=== PATIENT | female | born 1995 | race Caucasian/White ===

== ENCOUNTER 2021-02-23 16:30 | Emergency (ER) | payer OTHER ==
[2021-02-23 19:46] VITALS: TEMP 98.3
[2021-02-23] MEDS ORDERED: diphenhydrAMINE 50 MG/ML 1 ML VIAL IVP STA (22:51)
[2021-02-23] MEDS ORDERED: CLINDAMYCIN 600 MG in DEXTROSE 5% IN WATER 50 ML IVPB STA ×2 (22:51)
[2021-02-23] MEDS ORDERED: SODIUM CHLORIDE 0.9% 500 ML 1,000 ML IV STA (22:52)
--- NOTE | 2021-02-23 22:56 | ED ---
Skin/Abscess/FB HPI - General Chief complaint: Skin/Abscess/Foreign Body Stated complaint: MRSA Right Leg Time Seen by Provider: 02/23/21 22:45 Source: patient, RN notes reviewed Mode of arrival: ambulatory Limitations: no limitations - History of Present Illness Initial comments: This is a pleasant 25-year-old female who presents to emergency complaining of MRSA infection to the skin of her anterior right knee. Patient states she was on Bactrim DS from the hospital on [facility]. Patient subsequently was admitted to [facility] for opiate addiction. Has been switched over to clindamycin which she's been on for 2 days. Patient states that the wound culture from [facility] came back today and showed MRSA. Patient has some sensitivity to the area. Patient states she popped this area herself with a sterilized. 2 nights ago. Patient denies any fever or chills. No nausea or vomiting. No chance of . Patient has a history of opiate addiction. Patient also has a history of endocarditis and IV drug abuse. No headache, no fever or chills, no changes in vision or hearing, no sore throat or difficulty with speech, no neck pain, no chest pain or shortness of breath, no abdominal pain, no nausea or vomiting, no changes in urination or bowel movements, no numbness or tingling, no extremity pain, no skin rashes or lesions. - Related Data Home Medications Medication Instructions Recorded Confirmed Acetaminophen Tab [Tylenol] 650 mg PO TID PRN 02/23/21 02/23/21 Calcium/Magnesium/Zinc/Pushpa D 1 tab PO TID 02/23/21 02/23/21 Chlorpheniramine Maleate 4 mg PO Q4H PRN 02/23/21 02/23/21 [Chlor-Trimeton] Hyoscyamine Sulfate [Levsin] 0.125 mg PO QID PRN 02/23/21 02/23/21 Ibuprofen [Motrin Ib] 600 mg PO Q6H PRN 02/23/21 02/23/21 Loperamide HCl [Imodium A-D] 4 mg PO TID PRN 02/23/21 02/23/21 Mirtazapine [Remeron] 15 mg PO HS 02/23/21 02/23/21 Multivitamins, Thera [Multivitamin 1 tab PO DAILY 02/23/21 02/23/21 (formulary)] Thiamine HCl [Vitamin B-1] 100 mg PO DAILY 02/23/21 02/23/21 cloNIDine HCL [Catapres] 0.1 mg PO DAILY PRN 02/23/21 02/23/21 ondansetron HCL [Zofran] 8 mg PO Q6H PRN 02/23/21 02/23/21 Previous Rx's Medication Instructions Recorded Clindamycin [Cleocin] 300 mg PO Q6H 10 Days #40 cap 02/23/21 clindamycin HCL [Cleocin] 300 mg PO Q6H #40 cap 02/23/21 Allergies Allergy/AdvReac Type Severity Reaction Status Date / Time No Known Allergies Allergy Verified 02/23/21 23:19 Review of Systems ROS Statement: Those systems with pertinent positive or pertinent negative responses have been documented in the HPI. ROS Other: All systems not noted in ROS Statement are negative. Past Medical History Additional Past Medical History / Comment(s): endocarditits History of Any Multi-Drug Resistant Organisms: MRSA Date of last positivie culture/infection: 03/06 MDRO Source:: right knee Past Surgical History: Section, Tonsillectomy Past Psychological History: ADD/ADHD, Anxiety, Bipolar, Depression Smoking Status: Current every day smoker Past Alcohol Use History: None Reported Past Drug Use History: Heroin General Exam - General Exam Comments Initial Comments: Patient does not appear to be ill or toxic. Vital signs stable, patient afebrile. Limitations: no limitations General appearance: alert, in no apparent distress Head exam: Present: atraumatic, normocephalic, normal inspection Eye exam: Present: normal appearance, PERRL, EOMI. Absent: scleral icterus, conjunctival injection, periorbital swelling ENT exam: Present: normal exam, mucous membranes moist Neck exam: Present: normal inspection. Absent: tenderness, meningismus, lymphadenopathy Respiratory exam: Present: normal lung sounds bilaterally. Absent: respiratory distress, wheezes, rales, rhonchi, stridor Cardiovascular Exam: Present: regular rate, normal rhythm, normal heart sounds. Absent: systolic murmur, diastolic murmur, rubs, gallop, clicks GI/Abdominal exam: Present: soft, normal bowel sounds. Absent: distended, tenderness, guarding, rebound, rigid Extremities exam: Present: normal inspection, full ROM, tenderness, normal capillary refill, other (Patient has mild tenderness to abrasion on the anterior aspect of her right knee which appears to be minimally infected with minimal erythema surrounding. No purulent drainage. There is eschar formation. Does not appear to involve the joint.). Absent: pedal edema, joint swelling, calf tenderness Back exam: Present: normal inspection Neurological exam: Present: alert, oriented X3, CN II-XII intact Psychiatric exam: Present: normal affect, normal mood Skin exam: Present: warm, dry, intact, normal color, abrasion (Patient has multiple abrasions noted to the lateral aspect of her left ankle which does not appear to be infected. Infected abrasions anterior aspect of the right knee with no joint space involvement. No lymphangitis. Minimal erythema suggesting minimal cellulitis. No drainage). Absent: rash Course Vital Signs 02/23/21 19:43 Temperature 98.3 F Pulse Rate 83 Respiratory 18 Rate Blood Pressure 138/93 O2 Sat by Pulse 99 Oximetry Medical Decision Making - Medical Decision Making Patient no distress. Vital signs stable, patient afebrile. The patient's been on clindamycin 2 days for community acquired MRSA. I'm going to leave the patient on Cleocin. I will give her 1 dose of IV clindamycin here. Patient can be discharged back to [facility]. No evidence of systemic infection. Full range of motion in all major joints. Full strength in all major muscle groups. No evidence of joint space infection. Follow-up with your regular physician as directed. Return to the ER immediately if any symptoms worsen, new symptoms arise, or any other problems develop. Increase the patient to clindamycin 300 mg 4 times a day if she is not on this already. - Lab Data Result diagrams: 02/23/21 23:23 02/23/21 23:23 Lab Results 02/23/21 02/23/21 Range/Units 23:23 23:23 WBC 9.3 (3.8-10.6) k/uL RBC 5.14 (3.80-5.40) m/uL Hgb 14.3 (11.4-16.0) gm/dL Hct 44.6 (34.0-46.0) % MCV 86.8 (80.0-100.0) fL MCH 27.8 (25.0-35.0) pg MCHC 32.1 (31.0-37.0) g/dL RDW 13.3 (11.5-15.5) % Plt Count 413 (150-450) k/uL MPV 6.7 Neutrophils % 60 % Lymphocytes % 32 % Monocytes % 4 % Eosinophils % 1 % Basophils % 1 % Neutrophils # 5.6 (1.3-7.7) k/uL Lymphocytes # 3.0 (1.0-4.8) k/uL Monocytes # 0.4 (0-1.0) k/uL Eosinophils # 0.1 (0-0.7) k/uL Basophils # 0.0 (0-0.2) k/uL Sodium 140 (137-145) mmol/L Potassium 4.1 (3.5-5.1) mmol/L Chloride 103 (98-107) mmol/L Carbon Dioxide 27 (22-30) mmol/L Anion Gap 10 mmol/L BUN 21 H (7-17) mg/dL Creatinine 0.69 (0.52-1.04) mg/dL Est GFR (CKD-EPI)AfAm >90 (>60 ml/min/1.73 sqM) Est GFR (CKD-EPI)NonAf >90 (>60 ml/min/1.73 sqM) Glucose 123 H (74-99) mg/dL Calcium 10.0 (8.4-10.2) mg/dL Disposition Clinical Impression: Cellulitis of right leg without foot Narrative: Minimal cellulitis to the anterior aspect of the right knee secondary to an abrasion. Disposition: HOME SELF-CARE Condition: Good Instructions (If sedation given, give patient instructions): Cellulitis (ED) Additional Instructions: Follow-up with your regular physician as directed. Return to the ER immediately if any symptoms worsen, new symptoms arise, or any other problems develop. If he don't have her regular doctor you can follow up with the provided physician in 48 hours for wound recheck. Continue the clindamycin as directed. Apply warm compresses for 10-15 minutes at a time 4 times daily. Do not pick at the area or attempt to drain the area. Prescriptions: clindamycin HCL [Cleocin] 300 mg PO Q6H #40 cap Is patient prescribed a controlled substance at d/c from ED?: No Referrals: Tadeo Metz MD [STAFF PHYSICIAN] - 02/26/21 Time of Disposition: 22:59
[2021-02-23 23:40] LABS: Basophils % (A) 1 %; Eosinophils # (A) 0.1 k/uL (0-0.7); Eosinophils % (A) 1 %; HCT 44.6 % (34.0-46.0); HGB 14.3 gm/dL (11.4-16.0); Lymphocytes % (A) 32 %; MCH 27.8 pg (25.0-35.0); MCHC 32.1 g/dL (31.0-37.0); MCV 86.8 fL (80.0-100.0); Mean Platelet Volume 6.7; Monocytes # (A) 0.4 k/uL (0-1.0); Monocytes % (A) 4 %; Neutrophils # (A) 5.6 k/uL (1.3-7.7); Neutrophils % (A) 60 %; Platelet Count 413 k/uL (150-450); RBC 5.14 m/uL (3.80-5.40); RDW 13.3 % (11.5-15.5); WBC 9.3 k/uL (3.8-10.6)
[2021-02-23 23:55] LABS: African American GFR (CKD) >90 (>60 ml/min/1.73 sqM); Anion Gap 10 mmol/L; Blood Urea Nitrogen 21 mg/dL (7-17); Carbon Dioxide 27 mmol/L (22-30); Chloride 103 mmol/L (98-107); Glucose 123 mg/dL (74-99); Non-African American GFR(CKD) >90 (>60 ml/min/1.73 sqM); Potassium 4.1 mmol/L (3.5-5.1); Sodium 140 mmol/L (137-145)
[2021-02-24 00:34] VITALS: BP 124/78; PULSE 78; RESP 17
== END 2021-02-24 00:25 | disposition home or self-care (01) ==
LOC: EC 16:30
DX: L03.115 Cellulitis of right lower limb (principal); F17.200 Nicotine dependence, unspecified, uncomplicated
CPT/HCPCS: 36415; 80048; 85025; 99283; 96365; 96375; J1200

== ENCOUNTER 2023-07-08 18:14 | Inpatient (IN) | payer MEDICAID, OTHER ==
[2023-07-08] MEDS ORDERED: ACETAMINOPHEN TAB 325 MG TAB PO PRN (18:54)
[2023-07-08] MEDS ORDERED: MAGNESIUM HYDROXIDE 2,400 MG/30 ML CUP PO PRN (18:54)
[2023-07-08] MEDS: APIXABAN 5 MG TAB PO SCH (22:05)
[2023-07-08] MEDS: QUEtiapine 200 MG TAB PO SCH (22:25)
[2023-07-08] MEDS: SERTRALINE 50 MG TAB PO SCH (22:25)
[2023-07-08] MEDS: HALOPERIDOL LACTATE 5 MG/ML 1 ML VIAL IM PRN (22:28)
[2023-07-08] MEDS: LORazepam 2 MG/ML INJ IM PRN (22:28)
[2023-07-09] MEDS: METHADONE 10 MG TAB PO SCH (09:42)
[2023-07-09] MEDS: METHADONE 5 MG TAB PO SCH (09:43)
[2023-07-09 15:12] LABS: Chol/HDL Ratio 3.76 Ratio; LDL Cholesterol,Calculated 132.3 mg/dL (0.0-131.0)
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
[2023-07-09] MEDS: lamoTRIgine 25 MG TAB PO SCH (20:27)
--- NOTE | 2023-07-10 10:07 | P.PN ---
Progress Note - Text Progress Note Date: 07/10/23 (Interval History:Patient was seen [wandering the hallways] and was directable and agreeable to speak with typewriters functional tester in the office. []. At this time patient denies any suicidal or homical ideations, intent or plan. Patient denies any auditory, visual hallucinations and denies any paranoia or delusions. Patient denies any side effects from the medications and has been compliant with meds. Mental Status Exam:General Appearance: [Patient appears to be stated age is alert, directable, and cooperative.] Behavior: [Patient is calmly seated without any agitated behavior.]Speech: Patient's speech is fluent and nonpressured. Mood/Affect: Mood is improving mildly, affect is congruent and constricted. Suicidality/Homicidality: Patient denies having any suicidal or homicidal ideation intent or plan. Perceptions: Patient denies any visual hallucinations [and denies any auditory hallucinations] Though content/process: [There is no evidence of any delusional thought content and thought process is linear and goal-directed.] Memory and concentration: AOX3, grossly intact for the purposes of this sessionJudgment and insight: Improving mildlyAssessment[]Plan:-Patient continues to meet criteria for inpatient psychiatric admission for symptom stabilization and safety. Patient has [not] signed [adult voluntary form and] [medication consent] and was placed in patient's chart.-Medications: []-When necessary Ativan and Haldol for agitation/aggression.-NRT - [nicotine patch]-SW on board for discharge planning. Encouraged the patient to participate in milieu. [Currently awaiting deferral with employee benefits attorney and court date.] []) Interval History: Patient was seen [wandering the hallways] and was directable and agreeable to speak with typewriters functional tester in the office. Patient is quite fidgety today. Patient states her mood is good today, and that she is going to be going back to [place] upon discharge. At this time patient denies any suicidal or homicidal ideations, intent or plan. Patient denies any auditory, visual hallucinations and denies any paranoia or delusions. Patient denies any side effects from the medications and has been compliant with meds. MENTAL STATUS EXAM: General Appearance: Patient appears to be stated age, has tattoos. Fair hygiene and grooming, wearing her own clothing with fair eye contact. Behavior: Patient is sitting on the chair,, repeatedly moving her arms and legs (voluntary movements, reports this is from her ADHD), otherwise more calm today Speech: Patient's speech is fluent and non-pressured. Mood/Affect: Patient reports their mood improving but also depressed and anxious, affect is congruent Suicidality/Homicidality: Patient denies having any suicidal or homicidal ideation intent or plan. Perceptions: Patient denies any visual hallucinations and denies any auditory hallucinations. Though content/process: There is no evidence of any delusional thought content, and thought process can be evasive, but otherwise organized and generally linear Memory and concentration: AOX3, grossly intact for the purposes of this session. Judgment and insight: poor IMPRESSIONS: major depressive disorder Unspecified anxiety disorder PTSD by history ADHD by history Opioid use disorder, severe Methamphetamine use disorder Tobacco use disorder PLAN: -Patient is admitted under pet/cert status to MHU for stabilization of psychiatric symptoms and safety. Patient has signed adult voluntary form and medication consent and is placed in patient's chart. -Medications: Zoloft 50 mg daily this morning for depression/anxiety, Seroquel 200 mg QHS for mood/sleep and Methadone (prescribed by outpatient provider) for opioid addiction. Lamictal 25 mg QHS for mood stabilization. Discussed risk of rash with Lamictal and she should stop Lamictal and notify her doctor if a rash develops. -Ativan and Haldol PRN for agitation/aggression -NRT - nicotine patch -SW on board for discharge planning. Encourage patient to participate in groups to work on coping skills D/C to rehab as patient continues to improve..
[2023-07-10] MEDS: NICOTINE GUM (POLACRILEX) 2 MG GUM BUCCAL PRN (12:13)
[2023-07-10] MEDS: LORazepam 0.5 MG TAB PO PRN (20:07)
[2023-07-11 06:56] VITALS: PULSE 50; RESP 17; TEMP 98.8
--- NOTE | 2023-07-11 10:29 | P.PN ---
Progress Note - Text Progress Note Date: 07/11/23 Interval History: Patient was seen in group and was directable and agreeable to speak with tag writer in the office. Patient continues to be quite fidgety, and contributes this to ADHD. Patient states her mood is a little sad today, because she found out her mom has to have surgery, and sad that she is not being discharged today, because she wants to get this recovery process started. She is not endorsing any anxiety today. Patient stated she is not noticing any rash from the Lamictal. She claims to be sleeping well at night, and her appetite is good. At this time patient denies any suicidal or homicidal ideations, intent or plan. Patient denies any auditory, visual hallucinations and denies any paranoia or delusions. Patient denies any side effects from the medications and has been compliant with meds. MENTAL STATUS EXAM: General Appearance: Patient appears to be stated age, has tattoos. Fair hygiene and grooming, wearing her own clothing with fair eye contact. Behavior: Patient is sitting on the chair, repeatedly moving her arms and legs (voluntary movements, reports this is from her ADHD), otherwise more calm today Speech: Patient's speech is fluent and non-pressured. Mood/Affect: Patient reports their mood improving , affect is congruent Suicidality/Homicidality: Patient denies having any suicidal or homicidal ideation intent or plan. Perceptions: Patient denies any visual hallucinations and denies any auditory hallucinations. Though content/process: There is no evidence of any delusional thought content, and thought process can be evasive, but otherwise organized and generally linear Memory and concentration: AOX3, grossly intact for the purposes of this session. Judgment and insight: poor, improving mildly IMPRESSIONS: major depressive disorder Unspecified anxiety disorder PTSD by history ADHD by history Opioid use disorder, severe Methamphetamine use disorder Tobacco use disorder PLAN: -Patient is admitted under pet/cert status to MHU for stabilization of psychiatric symptoms and safety. Patient has signed adult voluntary form and medication consent and is placed in patient's chart. -Medications: Zoloft 50 mg daily this morning for depression/anxiety, Seroquel 200 mg QHS for mood/sleep and Methadone (prescribed by outpatient provider) for opioid addiction. increase Lamictal 50 mg QHS for mood stabilization. Discussed risk of rash with Lamictal and she should stop Lamictal and notify her doctor if a rash develops. -Ativan and Haldol PRN for agitation/aggression -NRT - nicotine patch -SW on board for discharge planning. Encourage patient to participate in groups to work on coping skills D/C to rehab as patient continues to improve and has [facility].
[2023-07-11] MEDS: haloperidoL 5 MG TAB PO PRN (14:13)
[2023-07-11] MEDS ORDERED: hydrOXYzine HCL 25 MG TAB PO PRN (15:29)
--- NOTE | 2023-07-11 18:50 | P.HPMEDMHU ---
History of Present Illness H&P Date: 07/11/23 Patient is a 27-year-old female with a past medical history of pulmonary embolism, endocarditis, IV drug abuse who is admitted to the psychiatry unit and being treated for depression. Patient states that the last time she injected herself was about 3 weeks ago. Patient is denying any fever chills nausea vomiting. She wants to be discharged from the psych unit as soon as possible. ROS: 10 ROS reviewed and are negative except as noted in HPI Physical exam General: [Alert and oriented, well nourished, no acute distress]. Eye: [PERRL, EOMI, normal conjunctiva]. HENT: [Normocephalic, clear tympanic membranes, normal hearing, moist oral mucosa, no scleral icterus, no sinus tenderness]. Neck: [Supple, non-tender, no carotid bruits, no JVD, no lymphadenopathy]. Lungs: [Clear to auscultation and percussion, non-labored respiration]. Heart: [Normal rate, regular rhythm, no murmur, gallop or edema]. Abdomen: [Soft, non-tender, non-distended, normal bowel sounds, no masses]. Musculoskeletal: [Normal range of motion and strength, no tenderness or swelling]. Skin: [Skin is warm, dry and pink, no rashes or lesions]. Neurologic: [Awake, alert, and oriented X3, CN II-XII intact]. Psychiatric: [Cooperative, appropriate mood and affect]. Assessment and plan Drug abuse Continue with methadone therapy History of pulm embolism Continue with Eliquis History of endocarditis Patient told to notify us if she has any fevers Depression As per your psychiatry management Reviewed patient's labs that are unremarkable Patient hemodynamically stable Please do not hesitate to contact sound physicians with any questions Past Medical History Past Medical History: Pulmonary Embolus (PE) Additional Past Medical History / Comment(s): endocarditits History of Any Multi-Drug Resistant Organisms: MRSA Date of last positivie culture/infection: 03/06 MDRO Source:: right knee Past Surgical History: Section, Tonsillectomy Additional Past Surgical History / Comment(s): Rhinoplasty Past Anesthesia/Blood Transfusion Reactions: No Reported Reaction Smoking Status: Current every day smoker, Vaper - Past Family History Mother History Unknown: Yes Medications and Allergies Home Medications Medication Instructions Recorded Confirmed Type Apixaban [Eliquis] 5 mg PO BID 07/06/23 07/09/23 History Methadone HCl [Methadone Intensol] 185 mg PO DAILY 07/06/23 07/09/23 History QUEtiapine [SEROquel] 200 mg PO HS 07/06/23 07/09/23 History Allergies Allergy/AdvReac Type Severity Reaction Status Date / Time No Known Allergies Allergy Verified 07/06/23 18:38 Physical Exam Osteopathic Statement: *. No significant issues noted on an osteopathic structural exam other than those noted in the History and Physical/Consult. Vitals: Vital Signs Temp Pulse Resp BP Pulse Ox 07/11/23 06:55 98.8 F 50 L 17 110/69 95 Cranial Nerve Examination - Cranial Nerves Cranial Nerve I- Olfactory: Intact Cranial Nerve II- Optic: Intact Cranial Nerve III- Oculomotor: Intact Cranial Nerve IV- Trochlear: Intact Cranial Nerve V- Trigeminal: Intact Cranial Nerve - Abducens: Intact Cranial Nerve VII- Facial: Intact Cranial Nerve VIII- Auditory: Intact Cranial Nerve IX- Glossopharyngeal: Intact Cranial Nerve X- Vagus: Intact Cranial Nerve XI- Accessory: Intact Cranial Nerve XII- Hypoglossal: Intact Thrombosis Risk Factor Assmnt - Choose All That Apply Any of the Below Risk Factors Present?: Yes Each Factor Represents 1 point: Obesity (BMI >25) Other Risk Factors: Yes Each Risk Factor Represents 3 Points: History of DVT/PE Other congenital or acquired thrombophilia - If yes, enter type in comment: No Thrombosis Risk Factor Assessment Total Risk Factor Score: 4 Thrombosis Risk Factor Assessment Level: Moderate Risk
[2023-07-11] MEDS: lamoTRIgine 25 MG TAB PO SCH (19:58)
[2023-07-12 08:57] VITALS: BP 98/68
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
== END 2023-07-12 12:55 | disposition home or self-care (01) | DRG 754 ==
LOC: UNDOADMIN 21:22 → 3MHU 21:22 → UNDODISIN 07-12 12:55
PROVIDERS: ADMIT Psychiatry & Neurology Psychiatry; ATTEND Psychiatry & Neurology Psychiatry
DX: F32.9 Major depressive disorder, single episode, unspecified (principal); F43.10 Post-traumatic stress disorder, unspecified; F41.0 Panic disorder [episodic paroxysmal anxiety]; F90.9 Attention-deficit hyperactivity disorder, unspecified type; F11.20 Opioid dependence, uncomplicated; F15.20 Other stimulant dependence, uncomplicated; E87.8 Other disorders of electrolyte and fluid balance, not elsewhere classified; F17.290 Nicotine dependence, other tobacco product, uncomplicated; Z91.51 Personal history of suicidal behavior; I07.1 Rheumatic tricuspid insufficiency; T45.5 Poisoning by, adverse effect of and underdosing of anticoagulants and antithrombotic drugs; E66.9 Obesity, unspecified; Z68.30 Body mass index [BMI] 30.0-30.9, adult; Z91.128 Patient's intentional underdosing of medication regimen for other reason; T40.1X Poisoning by and adverse effect of heroin; T42.4X2D Poisoning by benzodiazepines, intentional self-harm, subsequent encounter; Z79.01 Long term (current) use of anticoagulants; Z79.899 Other long term (current) drug therapy; Z86.711 Personal history of pulmonary embolism; Z86.14 Personal history of Methicillin resistant Staphylococcus aureus infection; Z63.4 Disappearance and death of family member; Z62.810 Personal history of physical and sexual abuse in childhood; Z62.811 Personal history of psychological abuse in childhood; Z91.410 Personal history of adult physical and sexual abuse; Z56.0 Unemployment, unspecified; Z28.310 Unvaccinated for COVID-19; Z86.19 Personal history of other infectious and parasitic diseases; Z71.41 Alcohol abuse counseling and surveillance of alcoholic; Z71.51 Drug abuse counseling and surveillance of drug abuser
CPT/HCPCS: 80061; 83036; 84443

== ENCOUNTER 2024-05-30 17:43 | Inpatient (IN) | payer OTHER ==
--- NOTE | 2024-05-30 18:03 | ED ---
General Adult HPI - General Chief complaint: Chest Pain Stated complaint: Chest pain Time Seen by Provider: 05/30/24 17:52 Source: patient, EMS, RN notes reviewed, old records reviewed Mode of arrival: EMS Limitations: no limitations - History of Present Illness Initial comments: 28-year-old female presenting with left-sided chest pain, worse with deep inspiration. Patient does report productive cough. No fever. She last used heroin 2 days prior she is currently at [place]. She has history of IVDA, remote history of PE and endocarditis. She denies dyspnea. Denies unilateral calf pain. - Related Data Home Medications Medication Instructions Recorded Confirmed Apixaban [Eliquis] 5 mg PO BID 07/06/23 07/09/23 Methadone HCl [Methadone Intensol] 185 mg PO DAILY 07/06/23 07/09/23 Previous Rx's Medication Instructions Recorded Nicotine Gum (Polacrilex) 2 mg BUCCAL Q4HR PRN 30 Days #180 07/12/23 [Nicorette] pieceofgum QUEtiapine [SEROquel] 200 mg PO HS 30 Days #30 tab 07/12/23 Sertraline [Zoloft] 50 mg PO DAILY 30 Days #30 tab 07/12/23 hydrOXYzine HCL [Atarax] 50 mg PO BID PRN 30 Days #120 tab 07/12/23 lamoTRIgine [LaMICtal] 50 mg PO HS 30 Days #60 tab 07/12/23 Allergies Allergy/AdvReac Type Severity Reaction Status Date / Time No Known Allergies Allergy Verified 05/30/24 17:52 Review of Systems ROS Statement: Those systems with pertinent positive or pertinent negative responses have been documented in the HPI. ROS Other: All systems not noted in ROS Statement are negative. Past Medical History Past Medical History: Pulmonary Embolus (PE) Additional Past Medical History / Comment(s): endocarditits History of Any Multi-Drug Resistant Organisms: MRSA Date of last positivie culture/infection: 03/06 MDRO Source:: right knee Past Surgical History: Section, Tonsillectomy Additional Past Surgical History / Comment(s): Rhinoplasty, Past Anesthesia/Blood Transfusion Reactions: No Reported Reaction Past Psychological History: ADD/ADHD, Anxiety, Bipolar, Depression Smoking Status: Current every day smoker, Vaper Past Alcohol Use History: None Reported Past Drug Use History: Heroin General Exam Limitations: no limitations General appearance: alert, in no apparent distress Head exam: Present: atraumatic Eye exam: Present: normal appearance, PERRL Neck exam: Present: normal inspection. Absent: tenderness Respiratory exam: Present: normal lung sounds bilaterally. Absent: respiratory distress, wheezes Cardiovascular Exam: Present: regular rate, normal rhythm GI/Abdominal exam: Present: soft. Absent: distended Extremities exam: Present: normal inspection Neurological exam: Present: alert, oriented X3, CN II-XII intact. Absent: motor sensory deficit Psychiatric exam: Present: normal affect, normal mood Skin exam: Present: warm, dry, intact Course Vital Signs 05/30/24 05/30/24 17:48 20:32 Temperature 99.0 F 98.7 F Pulse Rate 71 74 Respiratory 18 18 Rate Blood Pressure 110/66 115/74 O2 Sat by Pulse 100 99 Oximetry Medical Decision Making - Medical Decision Making Was pt. sent in by a medical professional or institution (, PA, GAMING MANAGER, urgent care, hospital, or half-way...) When possible be specific @ -No Did you speak to anyone other than the patient for history (EMS, parent, family, police, friend...)? What history was obtained from this source @ -No Did you review nursing and triage notes (agree or disagree)? Why? @ -I reviewed and agree with nursing and triage notes Were old charts reviewed (outside hosp., previous admission, EMS record, old EKG, old radiological studies, urgent care reports/EKG's, half-way records)? Report findings @ -No old charts were reviewed Differential Chest Pain: Stable Angina, Unstable Angina, STEMI, NSTEMI Aortic Dissection, Pneumothorax, Musculoskeletal, Esophageal Spasm GERD, Cholecystitis, Pancreatitis, Zoster, this is not meant to be an all-inclusive list. EKG interpreted by me (3pts min.). @Sinus rhythm rate of 68, DE interval 168, QRS duration 95, QTc [address] segment elevation. X-rays interpreted by me (1pt min.). @Negative for acute cardiopulmonary findings. CT interpreted by me (1pt min.). @ -[CT angiography negative for pulmonary embolism, concerning for infectious process U/S interpreted by me (1pt. min.). @ -None done What testing was considered but not performed or refused? (CT, X-rays, U/S, labs)? Why? @ -None What meds were considered but not given or refused? Why? @ -None Did you discuss the management of the patient with other professionals (professionals i.e. , PA, GAMING MANAGER, lab, RT, psych nurse, social media assistant, petrography teacher, teacher, correction officer, case operator)? Give summary @[facility] Was smoking cessation discussed for >3mins.? @ -No Was critical care preformed (if so, how long)? @ -No Were there social determinants of health that impacted care today? How? (Homelessness, low income, unemployed, alcoholism, drug addiction, transportation, low edu. Level, literacy, decrease access to med. care, senior living, rehab)? @ -No Was there de-escalation of care discussed even if they declined (Discuss DNR or withdrawal of care, Hospice)? DNR status @ -No What co-morbidities impacted this encounter? (DM, HTN, Smoking, COPD, CAD, Cancer, CVA, ARF, Chemo, Hep., AIDS, mental health diagnosis, sleep apnea, morbid obesity)? @ -[IV drug use, endocarditis, PE Was patient admitted / discharged? Hospital course, mention meds given and route, prescriptions, significant lab abnormalities, going to OR and other pertinent info. @ -28-year-old female with significant past medical history presenting for evaluation of left-sided chest pain, generalized discomfort. History of IV drug abuse, history of endocarditis, history of pulmonary embolism. Patient has stable vitals. She is in sinus rhythm without ST segment elevation. She has a leukopenia and anemia. She had a positive D-dimer and in the setting of pleuritic chest pain this was evaluated with CT angiography that was negative for pulmonary embolism. Patient is generally ill-appearing. I did obtain a blood culture which is pending. I do feel this patient would benefit from IV antibiotics and a period of observation. Case discussed with [facility] will admit. I will order echo. Undiagnosed new problem with uncertain prognosis? @ -[No Drug Therapy requiring intensive monitoring for toxicity (Heparin, Nitro, Insulin, Cardizem)? @ -No Were any procedures done? @ -No Diagnosis/symptom? @Chest pain, pneumonia Acute, or Chronic, or Acute on Chronic? @ -Acute Uncomplicated (without systemic symptoms) or Complicated (systemic symptoms)? @Complicated Side effects of treatment? @ -No Exacerbation, Progression, or Severe Exacerbation? @ -No Poses a threat to life or bodily function? How? (Chest pain, [place], NH, pneumonia, PE, COPD, DKA, ARF, appy, cholecystitis, CVA, Diverticulitis, Homicidal, Suicidal, threat to staff... and all critical care pts) @Yes, sepsis - Lab Data Result diagrams: 05/30/24 18:17 05/30/24 18:17 Lab Results 05/30/24 05/30/24 05/30/24 Range/Units 18:05 18:17 18:17 WBC 2.34 L (4.50-10.00) 10*3/uL RBC 4.34 (4.10-5.20) 10*6/uL Hgb 10.5 L (12.0-15.0) g/dL Hct 34.1 L (37.2-46.3) % MCV 78.6 L (80.0-97.0) fL MCH 24.2 L (27.0-32.0) pg MCHC 30.8 L (32.0-37.0) g/dL Plt Count 300 (140-440) 10*3/uL MPV 8.9 L (9.5-12.2) fL Immature Gran % (Auto) 0.4 % Neutrophils % 62.1 % Lymphocytes % 17.9 % Monocytes % 19.2 % Eosinophils % 0.0 % Basophils % 0.4 % Immature Gran # 0.01 (0.00-0.04) 10*3/uL Neutrophils # 1.45 L (1.80-7.70) 10*3/uL Lymphocytes # 0.42 L (0.90-5.00) 10*3/uL Monocytes # 0.45 (0.20-1.00) 10*3/uL Eosinophils # 0.00 L (0.04-0.35) 10*3/uL Basophils # 0.01 (0.00-0.10) 10*3/uL PT 11.9 (10.0-12.5) sec INR 1.1 (<1.2) APTT 24.7 (22.0-30.0) sec D-Dimer 0.93 H (<0.60) mg/L FEU Sodium (137-145) mmol/L Potassium (3.5-5.1) mmol/L Chloride (98-107) mmol/L Carbon Dioxide (22-30) mmol/L Anion Gap mmol/L BUN (7-17) mg/dL Creatinine (0.52-1.04) mg/dL Est GFR (CKD-EPI)AfAm (>60 ml/min/1.73 sqM) Est GFR (CKD-EPI)NonAf (>60 ml/min/1.73 sqM) Glucose (74-99) mg/dL Calcium (8.4-10.2) mg/dL Magnesium (1.6-2.3) mg/dL Total Bilirubin (0.2-1.3) mg/dL AST (14-36) U/L ALT (4-34) U/L Alkaline Phosphatase (38-126) U/L Troponin I (0.000-0.034) ng/mL NT-Pro-B Natriuret Pep pg/mL Total Protein (6.3-8.2) g/dL Albumin (3.5-5.0) g/dL Influenza Type A (PCR) Not Detected (Not Detectd) Influenza Type B (PCR) Not Detected (Not Detectd) RSV (PCR) Not Detected (Not Detectd) SARS-CoV-2 (PCR) Not Detected (Not Detectd) 05/30/24 05/30/24 Range/Units 18:17 18:17 WBC (4.50-10.00) 10*3/uL RBC (4.10-5.20) 10*6/uL Hgb (12.0-15.0) g/dL Hct (37.2-46.3) % MCV (80.0-97.0) fL MCH (27.0-32.0) pg MCHC (32.0-37.0) g/dL Plt Count (140-440) 10*3/uL MPV (9.5-12.2) fL Immature Gran % (Auto) % Neutrophils % % Lymphocytes % % Monocytes % % Eosinophils % % Basophils % % Immature Gran # (0.00-0.04) 10*3/uL Neutrophils # (1.80-7.70) 10*3/uL Lymphocytes # (0.90-5.00) 10*3/uL Monocytes # (0.20-1.00) 10*3/uL Eosinophils # (0.04-0.35) 10*3/uL Basophils # (0.00-0.10) 10*3/uL PT (10.0-12.5) sec INR (<1.2) APTT (22.0-30.0) sec D-Dimer (<0.60) mg/L FEU Sodium 136 L (137-145) mmol/L Potassium 4.2 (3.5-5.1) mmol/L Chloride 102 (98-107) mmol/L Carbon Dioxide 25 (22-30) mmol/L Anion Gap 9 mmol/L BUN 17 (7-17) mg/dL Creatinine 0.59 (0.52-1.04) mg/dL Est GFR (CKD-EPI)AfAm >90 (>60 ml/min/1.73 sqM) Est GFR (CKD-EPI)NonAf >90 (>60 ml/min/1.73 sqM) Glucose 89 (74-99) mg/dL Calcium 9.8 (8.4-10.2) mg/dL Magnesium 2.3 (1.6-2.3) mg/dL Total Bilirubin 0.5 (0.2-1.3) mg/dL AST 54 H (14-36) U/L ALT 16 (4-34) U/L Alkaline Phosphatase 91 (38-126) U/L Troponin I <0.012 (0.000-0.034) ng/mL NT-Pro-B Natriuret Pep 441 pg/mL Total Protein 7.6 (6.3-8.2) g/dL Albumin 4.4 (3.5-5.0) g/dL Influenza Type A (PCR) (Not Detectd) Influenza Type B (PCR) (Not Detectd) RSV (PCR) (Not Detectd) SARS-CoV-2 (PCR) (Not Detectd) Disposition Clinical Impression: Chest pain, Pneumonia Disposition: ADMITTED IP TO THIS HOSP Condition: Stable Is patient prescribed a controlled substance at d/c from ED?: No Referrals: Nonstaff,Physician [Primary Care Provider] - 1-2 days Time of Disposition: 20:51
[2024-05-30 18:24] LABS: Basophils # (A) 0.01 10*3/uL (0.00-0.10); Basophils % (A) 0.4 %; HCT 34.1 % (37.2-46.3); HGB 10.5 g/dL (12.0-15.0); Lymphocytes # (A) 0.42 10*3/uL (0.90-5.00); Lymphocytes % (A) 17.9 %; MCH 24.2 pg (27.0-32.0); MCHC 30.8 g/dL (32.0-37.0); MCV 78.6 fL (80.0-97.0); Mean Platelet Volume 8.9 fL (9.5-12.2); Monocytes # (A) 0.45 10*3/uL (0.20-1.00); Monocytes % (A) 19.2 %; Neutrophils # (A) 1.45 10*3/uL (1.80-7.70); Neutrophils % (A) 62.1 %; Platelet Count 300 10*3/uL (140-440); RBC 4.34 10*6/uL (4.10-5.20); RDW 14.1 % (11.5-14.5); WBC 2.34 10*3/uL (4.50-10.00)
--- NOTE | 2024-05-30 18:35 | XR ---
EXAMINATION TYPE: XR chest 2V DATE OF EXAM: 05/30/2024 6:25 PM COMPARISON: Prior chest radiograph 07/06/2023. CLINICAL INDICATION: Female, 28 years old with history of Chest Pain; [facility] TECHNIQUE: XR chest 2V Frontal and lateral views of the chest. FINDINGS: Lungs/Pleura: There is no evidence of pleural effusion, focal consolidation, or pneumothorax. Pulmonary vascularity: Unremarkable. Heart/mediastinum: Cardiomediastinal silhouette is unremarkable. Musculoskeletal: No acute osseous pathology. Other findings: None IMPRESSION: No acute cardiopulmonary disease/process. [facility], , 05/30/2024 6:33 PM
[2024-05-30 18:36] LABS: ALT 16 U/L (4-34); AST 54 U/L (14-36); African American GFR (CKD) >90 (>60 ml/min/1.73 sqM); Albumin 4.4 g/dL (3.5-5.0); Alkaline Phosphatase 91 U/L (38-126); Anion Gap 9 mmol/L; Blood Urea Nitrogen 17 mg/dL (7-17); Calcium 9.8 mg/dL (8.4-10.2); Carbon Dioxide 25 mmol/L (22-30); Chloride 102 mmol/L (98-107); Glucose 89 mg/dL (74-99); Magnesium 2.3 mg/dL (1.6-2.3); Non-African American GFR(CKD) >90 (>60 ml/min/1.73 sqM); Potassium 4.2 mmol/L (3.5-5.1); Sodium 136 mmol/L (137-145); Total Bilirubin 0.5 mg/dL (0.2-1.3); Total Protein 7.6 g/dL (6.3-8.2)
[2024-05-30 18:39] LABS: INR 1.1 (<1.2); Partial Thromboplastin Time 24.7 sec (22.0-30.0); Prothrombin Time 11.9 sec (10.0-12.5)
[2024-05-30 18:44] LABS: NT-Pro-B-Type Natriuretic Pept 441 pg/mL
[2024-05-30 18:47] LABS: Influenza A Not Detected (Not Detectd); Influenza B Not Detected (Not Detectd); RSV Not Detected (Not Detectd)
--- NOTE | 2024-05-30 19:21 | CT ---
EXAMINATION TYPE: CT angio chest DATE OF EXAM: 05/30/2024 7:13 PM COMPARISON: None. CLINICAL INDICATION: Female, 28 years old with history of cp hx of PE, pos dimer; Cp hx of PE, pos di marley. TECHNIQUE/CONTRAST: CTA scan of the thorax is performed with IV Contrast, patient injected with 100 ml mL of Isovue 370, MIP images are created and reviewed these are created on a separate workstation.. CT DLP: 257.3 mGycm, Automated exposure control for dose reduction was used. FINDINGS: Pulmonary Artery: There is no evidence for a filling defect within the pulmonary vasculature to sugge st acute pulmonary embolism. The pulmonary artery is of normal size. Lungs/Pleura: No evidence of focal consolidation, pleural effusion or pneumothorax. Mild bronchial wa ll thickening and mucous plugging and lower lobes. Questionable groundglass attenuation opacities in the lingula and left lower lobe. Airway: Large airways are patent. Heart: Heart is within normal limits for size. Vasculature: No evidence of aortic aneurysm. Mediastinum: No gross evidence of adenopathy. Musculoskeletal: No acute osseous abnormalities Soft Tissues/lymph nodes: Unremarkable. Lower neck: No significant findings. Upper Abdomen: No significant acute findings. Splenomegaly partially visualized. IMPRESSION: 1. No evidence of acute pulmonary embolism. 2. Mild bronchial wall thickening and mucous plugging in the lower lobes with few scattered groundgl ass opacities which could reflect infectious or inflammatory bronchitis. [facility], , 05/30/2024 7:18 PM
[2024-05-30] MEDS ORDERED: NALOXONE 0.4 MG/ML 1 ML VIAL IV PRN (20:47)
[2024-05-30] MEDS ORDERED: ACETAMINOPHEN TAB 325 MG TAB PO PRN (20:47)
[2024-05-30] MEDS ORDERED: IBUPROFEN 400 MG TAB PO PRN (20:47)
[2024-05-30] MEDS: SODIUM CHLORIDE 0.9% 1,000 ML IV SCH (21:14)
[2024-05-30] MEDS: AZITHROMYCIN 500 MG in SODIUM CHLORIDE 0.9% 250 ML IVPB STA (21:41)
[2024-05-31] MEDS: ALPRAZolam 0.25 MG TAB PO PRN (01:34)
[2024-05-31] MEDS ORDERED: HYOSCYAMINE SULFATE 0.125 MG TAB PO PRN (11:08)
--- NOTE | 2024-05-31 11:11 | P.HPIM ---
History of Present Illness H&P Date: 05/31/24 History of present illness; Patient is a 28-year-old female with history of heroin use, history of pulmonary embolism and endocarditis who presents with left-sided chest pain. Patient states pain began a few days ago and is worsened with deep inspiration. She does states she has productive greenish sputum with cough and some shortness of breath. She is currently staying at [place] and is in IV drug user with last use of heroin 3 days ago. Currently she is denying calf pain or immobilization. She states she is feeling uncomfortable with the effects of withdrawal. Spoke with the ER physician, patient admission was accepted by internal medicine service for treatment. REVIEW OF SYSTEMS: Pertinent positives and negatives noted in HPI. PHYSICAL EXAMINATION: Vitals reviewed GENERAL: Moderate distress. EYES: PERRL, no scleral injection or icterus. No vision loss HENT: Normocephalic, atraumatic, hearing grossly intact, moist mucous membranes NECK: No tracheal deviation, full range of motion. CARDIOVASCULAR: S1 and S2 present. No murmurs, rubs, or gallops. PULMONARY: Chest is clear to auscultation, no wheezing, rhonchi, or crackles. ABDOMEN: Soft, nontender, nondistended. No palpable organomegaly. MUSCULOSKELETAL: No apparent joint swelling and deformities. EXTREMITIES: No splinter hemorrhaging, Janeway lesions or Osler nodes. No apparent cyanosis, clubbing. No pedal edema. NEUROLOGICAL: Alert and oriented. Gross neurological examination with no apparent focal deficits. SKIN: No apparent rashes. ER FINDINGS: Labs significant for WBC 2.3, hemoglobin 10.5, MCV 78, D-dimer 0.93, sodium 136, AST 54, troponin negative, proBNP 441, viral respiratory panel negative EKG independently interpreted showed sinus rhythm heart rate of 68, QTc 425, no ST segment elevation or depression seen, no T-wave inversions seen. Chest x-ray done independently interpreted showed no acute cardiopulmonary process. CTA chest independently interpreted as no evidence of pulmonary lesion, mild bronchial wall thickening and mucous plugging in lower lobes with few scattered groundglass opacities Assessment and Plan: In summary, patient is a 28-year-old female with history of heroin use, history of pulmonary embolism and endocarditis who presents with left-sided chest pain. # Atypical chest pain #History of endocarditis #Microcytic anemia #Opioid withdrawal #History of IV drug use #History of pulmonary embolism Afebrile CTAP with no pulmonary embolism visualized Continue Ativan and Xanax for agitation Resume home Suboxone Echocardiogram ordered Blood cultures pending Cardiac monitoring Monitor CBC and BMP Chronic Medical Conditions #Anxiety, bipolar, depression Resume home medications DVT ppx: Subq Lovenox 40 meq daily Code status: Full code F: P.o. E: Replete as needed N: Regular diet A: Ambulatory Anticipated discharge place: [place] Anticipated discharge time: Today or tomorrow Dictation was produced using [employer] dictation software. Please excuse any grammatical, word or spelling errors. Past Medical History Past Medical History: Pulmonary Embolus (PE) Additional Past Medical History / Comment(s): endocarditits History of Any Multi-Drug Resistant Organisms: MRSA Date of last positivie culture/infection: 03/06 MDRO Source:: right knee Past Surgical History: Section, Tonsillectomy Additional Past Surgical History / Comment(s): Rhinoplasty, head injury Past Anesthesia/Blood Transfusion Reactions: No Reported Reaction Past Psychological History: ADD/ADHD, Anxiety, Bipolar, Depression Smoking Status: Current every day smoker, Vaper Past Alcohol Use History: None Reported Past Drug Use History: Heroin Medications and Allergies Home Medications Medication Instructions Recorded Confirmed Type Acetaminophen Tab [Tylenol] 650 mg PO Q4H PRN MDD 4 doses 05/31/24 05/31/24 History Calcium Phos/D3/Magnesium/Zinc 1 tab PO TID PRN 05/31/24 05/31/24 History [Qfhdudw-Mrm-Gjyx-Vitamin D3] Chlorpheniramine Maleate 4 mg PO Q4H PRN 05/31/24 05/31/24 History [Chlor-Trimeton] Hyoscyamine Sulfate [Levsin] 0.125 mg PO QID PRN 05/31/24 05/31/24 History Ibuprofen [Motrin Ib] 600 mg PO Q6H PRN 05/31/24 05/31/24 History Loperamide HCl [Imodium A-D] 4 mg PO QID PRN MDD 8 tablets 05/31/24 05/31/24 History Multivitamins, Thera [Multivitamin 1 tab PO DAILY 05/31/24 05/31/24 History (formulary)] Mylanta 30 ml PO Q4H PRN 05/31/24 05/31/24 History RX: guaiFENesin SYRUP 100MG/5ML 200 mg PO Q4H PRN 05/31/24 05/31/24 History [Robitussin] Thiamine [Vitamin B-1] 100 mg PO DAILY 05/31/24 05/31/24 History buprenorphine HCL [Subutex] 2 - 4 mg SUBLINGUAL DIRECTED 05/31/24 05/31/24 History cloNIDine HCL [Catapres] 0.1 mg PO Q4H PRN 05/31/24 05/31/24 History Allergies Allergy/AdvReac Type Severity Reaction Status Date / Time No Known Allergies Allergy Verified 05/31/24 08:50 Physical Exam Vitals: Vital Signs Temp Pulse Pulse Resp BP BP Pulse Ox 05/31/24 07:00 98.3 F 68 19 114/70 98 05/31/24 03:00 98.3 F 62 16 110/68 100 05/30/24 22:27 98.9 F 88 18 123/80 97 05/30/24 20:32 98.7 F 74 18 115/74 99 05/30/24 17:48 99.0 F 71 18 110/66 100 Intake and Output 05/30/24 05/31/24 05/31/24 22:59 06:59 14:59 Other: Voiding Method Toilet # Voids 1 Weight 70.307 kg Results CBC & Chem 7: 05/30/24 18:17 05/30/24 18:17 Labs: Abnormal Lab Results - Last 24 Hours (Table) 05/30/24 05/30/24 05/30/24 Range/Units 18:17 18:17 18:17 WBC 2.34 L (4.50-10.00) 10*3/uL Hgb 10.5 L (12.0-15.0) g/dL Hct 34.1 L (37.2-46.3) % MCV 78.6 L (80.0-97.0) fL MCH 24.2 L (27.0-32.0) pg MCHC 30.8 L (32.0-37.0) g/dL MPV 8.9 L (9.5-12.2) fL Neutrophils # 1.45 L (1.80-7.70) 10*3/uL Lymphocytes # 0.42 L (0.90-5.00) 10*3/uL Eosinophils # 0.00 L (0.04-0.35) 10*3/uL D-Dimer 0.93 H (<0.60) mg/L FEU Sodium 136 L (137-145) mmol/L AST 54 H (14-36) U/L Thrombosis Risk Factor Assmnt - Choose All That Apply Any of the Below Risk Factors Present?: Yes Each Factor Represents 1 point: Obesity (BMI >25) Other Risk Factors: No Other congenital or acquired thrombophilia - If yes, enter type in comment: No Thrombosis Risk Factor Assessment Total Risk Factor Score: 1 Thrombosis Risk Factor Assessment Level: Low Risk
[2024-05-31] MEDS: ALPRAZolam 0.5 MG TAB PO STA (11:13)
[2024-05-31] MEDS ORDERED: AZITHROMYCIN 500 MG in SODIUM CHLORIDE 0.9% 250 ML IVPB SCH (11:15)
[2024-05-31] MEDS ORDERED: NON FORMULARY DRUG (Buprenorphine Hcl [Subutex] 2 MG Tab.Subl) SUBLINGUAL SCH (11:15)
[2024-05-31] MEDS: LORazepam 1 MG/0.5 ML VIAL IV PRN (12:53)
[2024-05-31] MEDS: ENOXAPARIN 40 MG/0.4 ML SYRINGE SQ SCH (12:59)
[2024-05-31] MEDS: THIAMINE 100 MG TAB PO SCH (13:05)
[2024-05-31] MEDS: MULTIVITAMINS, THERA 1 EACH TAB PO SCH (13:06)
[2024-05-31] MEDS: AZITHROMYCIN 500 MG in SODIUM CHLORIDE 0.9% 250 ML IVPB SCH (13:30)
[2024-05-31] MEDS: cefTRIAXone 2 GM in DEXTROSE 5% IN WATER 50 ML IVPB SCH (13:34)
[2024-05-31] MEDS: BUPRENORPHINE-NALOX 8-2 MG TAB 1 EACH TAB.SUBL SL SCH (16:13)
--- NOTE | 2024-05-31 16:53 | CA ---
Transthoracic Echo Report Name: Jenelle Lemos Age: 28 Gender: F : 1995 Exam Date: 05/31/2024 14:13 Exam Location: [facility] Ht (in): 62 Wt (lb): 155 Ordering Physician: Yoel Manuel MD Attending/Referring Phys: [id number], Mar Radiologic Technician Iona Frost RDCS Procedure CPT: Indications: chest pain, history of endocarditis Cardiac Hx: Technical Quality: Good Contrast 1: Total Dose (mL): Contrast 2: Total Dose (mL): MEASUREMENTS (Male / Female) Normal Values 2D ECHO LV Diastolic Diameter PLAX 5.9 cm 4.2 - 5.9 / 3.9 - 5.3 cm LV Systolic Diameter PLAX 3.9 cm IVS Diastolic Thickness 0.6 cm 0.6 - 1.0 / 0.6 - 0.9 cm LVPW Diastolic Thickness 1.0 cm 0.6 - 1.0 / 0.6 - 0.9 cm LV Relative Wall Thickness 0.3 LVOT Diameter 2.1 cm LV Diastolic Volume MOD BP 149.1 cm??? 67 - 155 / 56 - 104 cm??? LV Systolic Volume MOD BP 53.1 cm??? 22 - 58 / 19 - 49 cm??? LV Ejection Fraction MOD BP 64.4 % >= 55 % LV Cardiac Index MOD BP 4704.2 cm???/min???m??? LV Diastolic Volume MOD 4C 138.4 cm??? LV Systolic Volume MOD 4C 52.5 cm??? LV Ejection Fraction MOD 4C 62.1 % LV Cardiac Index MOD 4C 4210.3 cm???/min???m??? LV Diastolic Length 4C 8.1 cm LV Systolic Length 4C 6.8 cm LV Diastolic Volume MOD 2C 152.8 cm??? LV Systolic Volume MOD 2C 54.0 cm??? LV Ejection Fraction MOD 2C 64.7 % LV Cardiac Index MOD 2C 4841.6 cm???/min???m??? LV Diastolic Length 2C 8.5 cm LV Systolic Length 2C 6.8 cm LA Volume 58.6 cm??? 18 - 58 / 22 - 52 cm??? LA Volume Index 33.0 cm???/m??? 16 - 28 cm???/m??? DOPPLER AV Peak Velocity 174.3 cm/s AV Peak Gradient 12.2 mmHg AV Mean Velocity 122.1 cm/s AV Mean Gradient 6.8 mmHg AV Velocity Time Integral 31.8 cm LVOT Peak Velocity 121.5 cm/s LVOT Peak Gradient 5.9 mmHg LVOT Velocity Time Integral 21.5 cm LVOT Stroke Volume 76.8 cm??? LVOT Stroke Volume Index 44.8 ml/m??? LVOT Cardiac Index 3764.2 cm???/min???m??? AV Area Cont Eq vti 2.4 cm??? AV Area Cont Eq pk 2.5 cm??? MV Area PHT 4.8 cm??? Mitral E Point Velocity 49.7 cm/s Mitral A Point Velocity 74.2 cm/s Mitral E to A Ratio 0.7 MV Deceleration Time 159.4 ms TR Peak Velocity 282.2 cm/s TR Peak Gradient 31.9 mmHg Right Ventricular Systolic Press 36.9 mmHg PV Peak Velocity 109.0 cm/s PV Peak Gradient 4.8 mmHg FINDINGS Left Ventricle Mildly increased posterior wall thickness. Moderately increased left ventricular diastolic diameter. Mildly increased left ventricular systolic volume. Left ventricular ejection fraction is estimated at 60-65 %. No obvious regional wall motion abnormalities. Right Ventricle Normal right ventricular size and function. Mild pulmonary hypertension. Right Atrium Normal right atrial size. Left Atrium Mildly increased left atrial volume. Mitral Valve Structurally normal mitral valve. No evidence for mitral valve prolapse. No mitral stenosis. Trace mitral regurgitation. Aortic Valve Trileaflet aortic valve. No aortic valve stenosis or regurgitation. Tricuspid Valve Structurally normal tricuspid valve. No tricuspid stenosis. Moderate tricuspid regurgitation. Pulmonic Valve Structurally normal pulmonic valve. No pulmonic stenosis. Trace pulmonic regurgitation. Pericardium No pericardial effusion. Aorta Normal size aortic root and proximal ascending aorta. CONCLUSIONS LVEF 60% No obvious regional wall motion abnormality Mild concentric LVH Mild left atrial dilatation Moderate tricuspid regurgitation Mild pulmonary hypertension with RVSP of 37 mmHg Previewed by: Dr Anthony Rich (Electronically Signed) Final Date: 31 May 2024 16:52
[2024-06-01 07:43] VITALS: BP 120/80; PULSE 74; RESP 18; TEMP 98.7
[2024-06-01] MEDS: BUPRENORPHINE-NALOX 8-2 MG TAB 1 EACH TAB.SUBL SL SCH (08:32)
[2024-06-01 10:20] LABS: HGB 9.5 g/dL (12.0-15.0); MCH 24.2 pg (27.0-32.0); MCHC 29.7 g/dL (32.0-37.0); MCV 81.4 FL (80.0-97.0); Mean Platelet Volume 10.5 FL (9.5-12.2); NRBC Per 100 WBC 0 X 10*3/uL (0.00-0.01); Platelet Count 236 X 10*3/uL (140-440); RBC 3.93 X 10*6/uL (4.10-5.20); RDW 14.1 % (11.5-14.5); WBC 3.65 X 10*3/uL (4.50-10.00)
--- NOTE | 2024-06-01 14:06 | P.DS ---
Providers Date of admission: 05/30/24 20:49 Expected date of discharge: 06/01/24 Attending physician: Abdifatah Retana Primary care physician: Physician Nonstaff Hospital Course: Discharge diagnoses; # Atypical chest pain #History of endocarditis #Microcytic anemia #Opioid withdrawal #History of IV drug use #History of pulmonary embolism Chronic Medical Conditions #Anxiety, bipolar, depression Hospital course; History of present illness; Patient is a 28-year-old female with history of heroin use, history of pulmonary embolism and endocarditis who presents with left-sided chest pain. Patient states pain began a few days ago and is worsened with deep inspiration. She does states she has productive greenish sputum with cough and some shortness of breath. She is currently staying at [facility] and is in IV drug user with last use of heroin 3 days ago. Currently she is denying calf pain or immobilization. She states she is feeling uncomfortable with the effects of withdrawal. Labs significant for WBC 2.3, hemoglobin 10.5, MCV 78, D-dimer 0.93, sodium 136, AST 54, troponin negative, proBNP 441, viral respiratory panel negative EKG independently interpreted showed sinus rhythm heart rate of 68, QTc 425, no ST segment elevation or depression seen, no T-wave inversions seen. Chest x-ray done independently interpreted showed no acute cardiopulmonary process. CTA chest independently interpreted as no evidence of pulmonary lesion, mild bronchial wall thickening and mucous plugging in lower lobes with few scattered groundglass opacities During hospital stay patient was seen for chest pain. Echocardiogram and CT chest with no evidence of endocarditis or pulmonary embolism. Cough and mucus plugging consistent with postviral cough, no pneumonia. Patient is discharged in stable condition to [facility]. She will need to follow-up with her PCP. PHYSICAL EXAMINATION: Vitals reviewed GENERAL: No distress. EYES: PERRL, no scleral injection or icterus. No vision loss HENT: Normocephalic, atraumatic, hearing grossly intact, moist mucous membranes NECK: No tracheal deviation, full range of motion. CARDIOVASCULAR: S1 and S2 present. No murmurs, rubs, or gallops. PULMONARY: Chest is clear to auscultation, no wheezing, rhonchi, or crackles. ABDOMEN: Soft, nontender, nondistended. No palpable organomegaly. MUSCULOSKELETAL: No apparent joint swelling and deformities. EXTREMITIES: No splinter hemorrhaging, Janeway lesions or Osler nodes. No apparent cyanosis, clubbing. No pedal edema. NEUROLOGICAL: Alert and oriented. Gross neurological examination with no apparent focal deficits. SKIN: No apparent rashes. Dr. Ghosh seen patient with resident, present during exam, and agreed with findings. Dictation was produced using [employer] dictation software. please excuse any grammatical, word or spelling errors. Patient Condition at Discharge: Stable Plan - Discharge Summary Discharge Rx Participant: No New Discharge Prescriptions: Continue Mylanta 30 ml PO Q4H PRN PRN Reason: Gi Upset Acetaminophen Tab [Tylenol] 650 mg PO Q4H PRN MDD 4 doses PRN Reason: Pain Or Fever > 100.5 Thiamine [Vitamin B-1] 100 mg PO DAILY Multivitamins, Thera [Multivitamin (formulary)] 1 tab PO DAILY Loperamide HCl [Imodium A-D] 4 mg PO QID PRN MDD 8 tablets PRN Reason: Diarrhea Hyoscyamine Sulfate [Levsin] 0.125 mg PO QID PRN PRN Reason: cramps Calcium Phos/D3/Magnesium/Zinc [Iqtrufe-Nvr-Dmry-Vitamin D3] 1 tab PO TID PRN PRN Reason: cramps buprenorphine HCL [Subutex] 2 - 4 mg SUBLINGUAL DIRECTED Ibuprofen [Motrin Ib] 600 mg PO Q6H PRN PRN Reason: Pain Or Fever > 100.5 guaiFENesin SYRUP 100MG/5ML [Robitussin] 200 mg PO Q4H PRN PRN Reason: cough/congestion Chlorpheniramine Maleate [Chlor-Trimeton] 4 mg PO Q4H PRN PRN Reason: Allergy Symptoms cloNIDine HCL [Catapres] 0.1 mg PO Q4H PRN PRN Reason: opiate withdrawl Discharge Medication List Acetaminophen Tab [Tylenol] 650 mg PO Q4H PRN MDD 4 doses 05/31/24 [History] Calcium Phos/D3/Magnesium/Zinc [Droefks-Eoa-Hqkh-Vitamin D3] 1 tab PO TID PRN 05/31/24 [History] Chlorpheniramine Maleate [Chlor-Trimeton] 4 mg PO Q4H PRN 05/31/24 [History] Hyoscyamine Sulfate [Levsin] 0.125 mg PO QID PRN 05/31/24 [History] Ibuprofen [Motrin Ib] 600 mg PO Q6H PRN 05/31/24 [History] Loperamide HCl [Imodium A-D] 4 mg PO QID PRN MDD 8 tablets 05/31/24 [History] Multivitamins, Thera [Multivitamin (formulary)] 1 tab PO DAILY 05/31/24 [History] Mylanta 30 ml PO Q4H PRN 05/31/24 [History] Thiamine [Vitamin B-1] 100 mg PO DAILY 05/31/24 [History] buprenorphine HCL [Subutex] 2 - 4 mg SUBLINGUAL DIRECTED 05/31/24 [History] cloNIDine HCL [Catapres] 0.1 mg PO Q4H PRN 05/31/24 [History] guaiFENesin SYRUP 100MG/5ML [Robitussin] 200 mg PO Q4H PRN 05/31/24 [History] Follow up Appointment(s)/Referral(s): Nonstaff,Physician [Primary Care Provider] - 1-2 days Activity/Diet/Wound Care/Special Instructions: Discharge to [facility]. Discharge Disposition: HOME SELF-CARE
[2024-06-02] MEDS ORDERED: BUPRENORPHINE-NALOX 8-2 MG TAB 1 EACH TAB.SUBL SL SCH (09:00)
== END 2024-06-01 12:40 | disposition home or self-care (01) | DRG 203 ==
LOC: EC 17:43 → 6NMEDSUR 20:48 → OBSVTOIN 20:49 → 6NMEDSUR 21:38
PROVIDERS: ADMIT Hospitalist; ATTEND Hospitalist
DX: R07.89 Other chest pain (principal); F11.23 Opioid dependence with withdrawal; F17.290 Nicotine dependence, other tobacco product, uncomplicated; D50.9 Iron deficiency anemia, unspecified; F31.9 Bipolar disorder, unspecified; F90.9 Attention-deficit hyperactivity disorder, unspecified type; F41.9 Anxiety disorder, unspecified; E66.9 Obesity, unspecified; Z68.28 Body mass index [BMI] 28.0-28.9, adult; Z79.01 Long term (current) use of anticoagulants; Z86.711 Personal history of pulmonary embolism; Z86.79 Personal history of other diseases of the circulatory system; Z28.310 Unvaccinated for COVID-19; Z86.14 Personal history of Methicillin resistant Staphylococcus aureus infection
CPT/HCPCS: 36415; 71046; 71275; 80053; 83605; 83735; 83880; 84484; 85025; 85027; 85379; 85610; 85730; 87040; 87077; 87186; 87636; 93005; 93306; 96365; 96375; 99285